=== PATIENT | male | born 1990 | race Caucasian/White ===

== ENCOUNTER 2020-06-08 07:58 | Emergency (ER) | payer OTHER, SELFPAY ==
[2020-06-08 07:59] VITALS: BP 147/93; PULSE 101; RESP 18; TEMP 37.3; O2SAT 94; BMI 29.1
--- NOTE | 2020-06-08 08:09 | RAD_ITS ---
STUDY: X-RAY CHEST REASON FOR EXAM: Male, 29 years old. COUGH, SHORTNESS OF BREATH, BODY ACHES AND CONGESTION X 1 WK TECHNIQUE: Single AP portable view of the chest. COMPARISON: None. FINDINGS: EKG electrodes are seen. Mild increased markings in the left lower lobe suggestive of early left lower lobe infiltrate. There is no demonstrated pleural abnormality. Normal size heart. Normal mediastinum and romelia. Normal visualized pulmonary arteries. Normal visualized aortic arch and descending thoracic aorta. Normal visualized thoracic spine. Normal visualized ribs, clavicles, and shoulders. There is no demonstrated abnormality of the visualized soft tissue structures of the upper abdomen. RAD/Chest 1 View (Portable) IMPRESSION: Findings suggestive of early left lower lobe infiltrate. Electronically Signed: Ramy Cool MD at 8:48 EST , Service support ,
--- NOTE | 2020-06-08 08:10 | ED.VIS.GEN ---
History of Present Illness Chief Complaint: Fever Informant: Patient Onset: Weeks Context: Gradual Onset Current Severity: Mild Maximum Severity: Mild Narrative: Patient presents with a 1 week history of fever, body aches, congestion. He does have cough with white sputum. T-max this morning was 101.5. Patient denies known contacts with Covid patient. States he has been quarantining at home for the past week. He has had poor appetite poor p.o. intake for the past 4 days. - Past Medical History (1) Anxiety Status: Chronic Past Medical History - Allergies and Home Meds Allergies/Adverse Reactions: Allergies No Known Allergies Allergy (Verified 06/08/20 07:59) Primary Care Physician: Jeff Leone DO [NON-STAFF] - Prior records reviewed: Yes Smoking Status: Never smoker Review of Systems General: Reports: Fever Eyes: Denies: Visual changes - bilaterally ENT: Denies: Bilateral ear pain, Sore throat Cardiovascular: Denies: Chest pain Respiratory: Reports: Dyspnea, Cough, Sputum Gastrointestinal: Denies: Abdominal pain, Vomiting, Diarrhea Musculoskeletal: Reports: Myalgias. Denies: Swelling, Extremity Pain Skin: Denies: Rash Neurological: Denies: Weakness, Parasthesia Hematologic: Denies: Easy bruising Allergy: Denies: Uticaria Physical Exam Vital Signs/Narrative: Vital Signs Temp Pulse Resp BP Pulse Ox 06/08/20 07:59 99.2 F H 101 H 18 147/93 H 94 Inital Vital Signs reviewed: Yes General: Well nourished, Well developed Head: Normocephalic Eyes: Perrl, EOMI Neck: Supple Cardiovascular: Regular rate, Regular rhythm Respiratory: No distress, CTA bilaterally Abdomen: Soft, Nontender, Normal bowel sounds Extremities: Nontender Skin: Normal color Neurological: Alert, Oriented x3 Psychological: Normal affect Diagnostic/Tx/Re-eval Chest X-Ray - ED: 1 View, Read by ED Physician, - - Questionable infiltrate left base Impressions Chest X-Ray 06/08/20 08:09 IMPRESSION: Findings suggestive of early left lower lobe infiltrate. Electronically Signed: Ramy Cool MD at 8:48 EST , Service support , 06/08/20 08:09 Chest 1 View (Portable) [RAD] Stat Laboratory Results 06/08/20 06/08/20 06/08/20 08:19 08:19 08:19 WBC 12.8 H RBC 4.68 Hgb 14.5 Hct 42.1 MCV 90.0 MCH 31.0 MCHC 34.4 RDW Std Deviation 37.4 RDW Coeff of Vero 11.4 L Plt Count 228 MPV 10.2 Immature Gran % (Auto) 0.500 Neut % (Auto) 84.4 H Lymph % (Auto) 9.3 L [place]ok % (Auto) 4.7 Eos % (Auto) 0.8 Baso % (Auto) 0.3 Absolute Neuts (auto) 10.8 H Absolute Lymphs (auto) 1.19 Nucleated RBC % 0 D-Dimer Quant (PE/DVT) 0.42 Sodium 136 Potassium 3.5 Chloride 103 Carbon Dioxide 28.0 Anion Gap 5 BUN 13 Creatinine 1.21 Estim Creat Clear Calc 97.98 Est GFR (MDRD) Af Amer 90 Est GFR (MDRD) Non-Af 74 BUN/Creatinine Ratio 10.7 Glucose 105 Lactic Acid Calcium 9.1 Total Bilirubin 1.10 H AST 18 ALT 34 Alkaline Phosphatase 81 Total Protein 7.2 Albumin 3.6 Globulin 3.6 Albumin/Globulin Ratio 1.0 COVID-19 (MARISA) 06/08/20 06/08/20 08:19 08:19 WBC RBC Hgb Hct MCV MCH MCHC RDW Std Deviation RDW Coeff of Vero Plt Count MPV Immature Gran % (Auto) Neut % (Auto) Lymph % (Auto) Crook % (Auto) Eos % (Auto) Baso % (Auto) Absolute Neuts (auto) Absolute Lymphs (auto) Nucleated RBC % D-Dimer Quant (PE/DVT) Sodium Potassium Chloride Carbon Dioxide Anion Gap BUN Creatinine Estim Creat Clear Calc Est GFR (MDRD) Af Amer Est GFR (MDRD) Non-Af BUN/Creatinine Ratio Glucose Lactic Acid 1.1 Calcium Total Bilirubin AST ALT Alkaline Phosphatase Total Protein Albumin Globulin Albumin/Globulin Ratio COVID-19 (MARISA) Not Detected - Medical Decision Making Patient was given Tylenol as well as Toradol while in the emergency department. Vital signs been stable. Chest x-ray per my interpretation was questionable infiltrate at left base and radiologist does concur that this does appear to be consistent with early infiltrate. White count is slightly elevated. His Covid PCR test is negative. In light of this patient be treated with a course of Levaquin, first dose given here. ED Disposition - Plan for ED Patient: Disposition: Home or Assisted Living Diagnosis: Pneumonia Instructions: ED Pneumonia (Adult) Prescriptions: Levofloxacin [Levaquin] 750 mg PO DAILY #4 tab Transmission Status: Pending to [place] [id number] [address] [facility] Referrals: Jeff Leone DO [NON-STAFF] - 1 Week if not improving
[2020-06-08 08:13] VITALS: BP 149/92; PULSE 101; RESP 19; TEMP 37.5; O2SAT 95
[2020-06-08 08:40] LABS: Absolute Lymphocyte Count 1.19 X10^3/uL (0.83-4.51); Absolute Neutrophil Count 10.8 X10^3/uL (2.0-7.7); Basophil# 0.04 X10^3/uL; Basophil% 0.3 % (0-1); Eosinophils% 0.8 % (0-5); Hematocrit 42.1 % (40-54); Hemoglobin 14.5 g/dL (13.0-16.5); Lymphocyte # 1.19 X10^3/ul (4.0); Lymphocyte % 9.3 % (19-41); Mean Corp Hgb Conc 34.4 g/dL (32-36); Mean Platelet Vol. 10.2 fl (6.2-12.0); Monocyte% 4.7 % (0-10); NRBC Flagged by Analyzer 0 % (0-5); Neutrophil # 10.84 X10^3/uL (2.7-7.7); Neutrophil % 84.4 % (47-70); Platelet Count 228 K/mm3 (150-450); RBC Distribution Width CV 11.4 % (11.6-14.6); RBC Distribution Width SD 37.4 fl (35.1-43.9); Red Blood Count 4.68 M/mm3 (4.6-6.2); White Blood Count 12.8 K/mm3 (4.4-11.0)
[2020-06-08 08:54] LABS: D-Dimer Quantitative (DVT/PE) 0.42 FEU/ug/m (0.27-0.49)
[2020-06-08 08:57] LABS: AST(SGOT) 18 U/L (15-37); Alanine Aminotransfer ALT/SGPT 34 U/L (16-61); Albumin, Serum 3.6 g/dL (3.2-5.0); Alkaline Phosphatase 81 U/L (45-117); Anion Gap 5 (5-15); BUN 13 mg/dL (7-18); BUN/Creat Ratio 10.7 RATIO (10-20); Calcium,Total 9.1 mg/dL (8.5-10.1); Chloride 103 mmol/L (98-107); Creatinine, Serum 1.21 mg/dL (0.70-1.30); EST Glomerular Filtration Rate 74 mL/min (>60); Est Glom Filt Rate - Afr Amer 90 mL/min (>60); Estimated Creatinine Clearance 97.98 ml/min; Globulin 3.6 g/dL (2.2-4.2); Glucose 105 mg/dL (74-106); Potassium 3.5 mmol/L (3.5-5.1); Protein, Total 7.2 g/dL (6.4-8.2); Sodium Level 136 mmol/L (136-145)
[2020-06-08 09:06] LABS: Lactic Acid 1.1 mmol/L (0.4-1.9)
[2020-06-08 10:09] VITALS: BP 113/78; PULSE 91; RESP 17; O2SAT 93
[2020-06-08] MEDS: Acetaminophen 500 MG Tablet 1000 MG PO (10:15)
[2020-06-08] MEDS: Ketorolac 30 MG/ML Syringe IV (10:52)
[2020-06-08] MEDS: levoFLOXacin 750 MG Tablet PO (11:08)
== END 2020-06-08 11:09 | disposition home or self-care (01) ==
PROVIDERS: Emergency Provider Emergency Medicine
DX: J18.9 Pneumonia, unspecified organism (principal); F41.9 Anxiety disorder, unspecified; Z79.899 Other long term (current) drug therapy
CPT/HCPCS: 71045; 80053; 83605; 85025; 85379; 87040; 87635; 96374; 99283; A4216; U0002

== ENCOUNTER → 2020-08-03 09:44 | Outpatient (CLI) | payer OTHER, SELFPAY ==
[2020-08-03 12:12] LABS: Absolute Lymphocyte Count 1.94 X10^3/uL (0.83-4.51); Absolute Neutrophil Count 5.5 X10^3/uL (2.0-7.7); Basophil# 0.07 X10^3/uL; Basophil% 0.8 % (0-1); Eosinophil# 0.72 X10^3/uL; Hematocrit 47.1 % (40-54); Hemoglobin 15.9 g/dL (13.0-16.5); Lymphocyte # 1.94 X10^3/ul (4.0); Lymphocyte % 21.7 % (19-41); Mean Corp Hgb Conc 33.8 g/dL (32-36); Mean Corpuscular Hgb 30.2 pg (27.0-32.0); Mean Corpuscular Volume 89.4 fL (80-94); Mean Platelet Vol. 11.3 fl (6.2-12.0); Monocyte% 7.8 % (0-10); NRBC Flagged by Analyzer 0 % (0-5); Neutrophil # 5.51 X10^3/uL (2.7-7.7); Neutrophil % 61.5 % (47-70); Platelet Count 212 K/mm3 (150-450); RBC Distribution Width CV 12.5 % (11.6-14.6); RBC Distribution Width SD 41.1 fl (35.1-43.9); Red Blood Count 5.27 M/mm3 (4.6-6.2)
[2020-08-03 12:29] LABS: AST(SGOT) 25 U/L (15-37); Alanine Aminotransfer ALT/SGPT 58 U/L (16-61); Albumin, Serum 3.9 g/dL (3.2-5.0); Alkaline Phosphatase 74 U/L (45-117); Bilirubin, Direct 0.13 mg/dL (0.00-0.30); Cholesterol 220 mg/dL (200); Globulin 3.2 g/dL (2.2-4.2); High Density Lipoprotein 34 mg/dL; Protein, Total 7.1 g/dL (6.4-8.2); Triglycerides 175 mg/dL; Very Low Density Lipoprotein 35 mg/dL (5-40)
== END ==
PROVIDERS: Referring Provider Physician Assistant; Visit Provider Physician Assistant
DX: L70.0 Acne vulgaris (principal); Z79.899 Other long term (current) drug therapy; L72.8 Other follicular cysts of the skin and subcutaneous tissue
CPT/HCPCS: 36415; 80061; 80076; 85025

== ENCOUNTER 2020-09-20 22:18 | Emergency (ER) | payer OTHER, SELFPAY ==
[2020-09-20 22:19] VITALS: BP 130/93; PULSE 90; RESP 18; TEMP 36.7; O2SAT 97; BMI 26.3
--- NOTE | 2020-09-20 22:45 | EKG12_ITS ---
Test Reason : DYSRHYTHMIA Blood Pressure : / mmHG Vent. Rate : 070 BPM Atrial Rate : 070 BPM P-R Int : 154 ms QRS Dur : 086 ms QT Int : 368 ms P-R-T Axes : 022 040 042 degrees QTc Int : 397 ms Normal sinus rhythm Normal ECG Confirmed by CY SIGALA, CLEO ([id number]), editor news EITAN BRITT ([id number]) on 09/21/2020 10:10:31 AM Referred By: Confirmed By:CLEO BENOIT MD
[2020-09-20] MEDS: predniSONE 20 MG Tablet 60 MG PO (22:50)
--- NOTE | 2020-09-20 22:56 | RAD_ITS ---
INDICATION: Nonproductive cough, fever and bilateral wheezing EXAMINATION/TECHNIQUE: X-RAY - XR Chest 1 View COMPARISON: None. FINDINGS: The lungs are clear. The cardiomediastinal silhouette is unremarkable. No pleural effusion or pneumothorax. No acute osseous abnormalities. RAD/Chest 1 View (Portable) IMPRESSION: No acute radiographic abnormalities. Electronically Signed: Rodrigo Moran MD at 23:40 EDT Tel , Service support ,
[2020-09-20 22:59] VITALS: PULSE 73; RESP 18; O2SAT 97
[2020-09-20] MEDS: Albuterol 2.5 MG/3 ML VIAL.NEB. INHALATION ×3 (22:59)
[2020-09-20 23:32] LABS: Absolute Lymphocyte Count 2.74 X10^3/uL (0.83-4.51); Basophil# 0.13 X10^3/uL; Basophil% 1.4 % (0-1); Eosinophil# 1.53 X10^3/uL; Eosinophils% 16.7 % (0-5); Hematocrit 46.2 % (40-54); Hemoglobin 16.1 g/dL (13.0-16.5); Lymphocyte # 2.74 X10^3/ul (0.83-4.51); Lymphocyte % 29.9 % (19-41); Mean Corp Hgb Conc 34.8 g/dL (32-36); Mean Corpuscular Hgb 30.2 pg (27.0-32.0); Mean Corpuscular Volume 86.7 fL (80-94); Mean Platelet Vol. 11.3 fl (6.2-12.0); Monocyte# 0.64 X10^3/uL; NRBC Flagged by Analyzer 0 % (0-5); Neutrophil # 4.03 X10^3/uL (2.7-7.7); Neutrophil % 44.1 % (47-70); Platelet Count 200 K/mm3 (150-450); RBC Distribution Width CV 12.5 % (11.6-14.6); RBC Distribution Width SD 39.4 fl (35.1-43.9); Red Blood Count 5.33 M/mm3 (4.6-6.2); White Blood Count 9.2 K/mm3 (4.4-11.0)
--- NOTE | 2020-09-20 23:38 | CPS ---
x3 Albuterol given in ER
--- NOTE | 2020-09-20 23:52 | EX.ED.VIS.UR ---
HPI HPI - URI History of Present Illness Chief Complaint: Cough Informant: patient Onset/Context/Timing Onset: Days (Onset 3 days ago) Context: Sudden Onset Timing: Continuous Quality: Nasal congestion, mild sore throat nonproductive cough with fever Location: Upper respiratory Current Severity: Mild Maximum Severity: Moderate Worsened by: Not Worsened By Swallowing, Eating Solids and Drinking Liquids Associated Symptoms Associated Symptoms: Nasal Congestion, Headache, Myalgias, Nausea, Vomiting, Diarrhea, Shortness of Breath, Chest Pain and Nonproductive cough Narrative Narrative: Patient is a 30-year-old male who presents with upper story symptoms. He denies exposure to anyone with Covid. He denies loss of taste or smell. He denies history of smoking. He states 4 months ago he was diagnosed with pneumonia. He denies myalgias or arthralgias. He denies leg pain, swelling discoloration. He denies pleuritic pain. He denies history of asthma. Upon further questioning he does admit to vaping. Prior similar symptoms: Yes Recent Illness/Hospitalization: No ROS ROS ED Constitutional Constitutional ED: Reports chills, fever(s), subjective and sweats Eyes Eyes: Denies blurry vision, change in vision or diplopia ENT ENT ED: Reports rhinorrhea and sore throat; Denies ear pain Cardiovascular Cardiovascular: Denies chest pain, orthopnea, palpitations, paroxysmal nocturnal dyspnea or racing heartbeat Respiratory/Chest Respiratory/Chest: Reports cough, dyspnea and dyspnea on exertion; Denies orthopnea, paroxysmal nocturnal dyspnea or sputum Gastrointestinal Gastrointestinal: Reports nausea; Denies abdominal pain, diarrhea or vomiting Genitourinary Genitourinary ED: Denies dysuria, hematuria or urinary frequency Musculoskeletal Musculoskeletal: Denies arthralgias, back pain, myalgias or neck pain Integumentary Denies rash Neurologic Neurologic: Denies headache(s) or weakness Endocrine Endocrinology: Denies polydipsia or polyuria Hematologic/Lymphatic Hematologic/Lymphatic: Denies easy bleeding or easy bruising [facility] Medical History (Updated 09/21/20 @ 00:[address] Victor Manuel Abdullahi MD) Community acquired pneumonia Home Medications alprazolam 2 mg PO DAILY 06/08/20 [History Last Taken Unknown] albuterol sulfate [Ventolin HFA] 2 puff INHALATION Q4H PRN PRN #1 inhaler 09/21/20 [Rx Last Taken Unknown] prednisone 60 mg PO DAILY #15 tablet 09/21/20 [Rx Last Taken Unknown] Allergy/AdvReac Type Severity Reaction Status Date / Time No Known Allergies Allergy Verified 09/20/20 22:21 no surgical history Social History (Updated 09/20/20 @ 23:[address] Victor Manuel Abdullahi MD) Smoking Status: Never smoker Smokeless tobacco user: other alcohol intake: current alcohol intake frequency: holidays/special occasions only substance use type: does not use EXAM Physical Exam Const Vital Signs: 09/20/20 22:19 09/20/20 22:26 09/20/20 22:59 Temperature 98.0 F Temperature Source Temporal Pulse Rate 90 73 Respiratory Rate 18 18 Respiratory Effort Normal Non-Labored Normal Non-Labored Respiratory Depth Normal Normal Respiratory Pattern Normal Normal Blood Pressure 130/93 H Blood Pressure Mean 105 Pulse Ox 97 97 Oxygen Delivery Method Room Air Room Air Room Air Positive well nourished and well developed General Appearance ED: well developed; Negative for cyanotic, diaphoretic or pallor HEENT Reports TM's clear and moist mucous membranes normocephalic Face and Sinus: Negative for sinus tenderness External Ear: external ears normal and no preauricular adenopathy External Auditory Canal: EAC's normal Tympanic Membrane ED: Yes TM's clear Throat: posterior oropharynx normal Eyes PERRL and EOMs intact bilaterally General Eye ED: Negative for pale conjunctiva or scleral icterus Neck no lymphadenopathy, supple and no JVD General: Negative for anterior neck swelling Resp normal respiratory effort Auscultation: wheezes throughout (He does have increased expiratory phase.) Cardio S1 normal heart sound, S2 normal heart sound and no murmurs Rate: regular rate Rhythm: regular rhythm GI non-tender and non-distended Auscultation: normoactive bowel sounds Palpation: soft Back/Spine no CVA tenderness and normal ROM Extremity normal to inspection and full ROM General Extremety ED: Negative for cyanosis General Extremity: Negative for cyanosis Neuro oriented x3, CN's II-XII intact bilaterally and no sensory deficits noted Sensorium / Orientation: alert Motor Exam: strength 5/5 throughout Psych mental status grossly normal Skin General Skin Exam: Negative for jaundice or pallor Lesions: no lesions Rashes: no rashes MDM MDM MDM Narrative Medical decision making narrative: Patient presents with upper respiratory symptoms. Since he has history of pneumonia and complains of fever with no known exposure to Covid will obtain chest x-ray to rule out pneumonia. CBC to assess white count. Covid test was ordered. He was treated with albuterol. He also received 60 mg of prednisone p.o. Patient improved with albuterol treatments. He was discharged prescription for albuterol metered-dose inhaler and burst of prednisone. He was informed that his chest x-ray was unremarkable and that his Covid test was negative. Lab Data Attestation: I reviewed the patient's lab results. Lab results narrative: CBC is unremarkable. There is no shift or bandemia noted. Covid test was negative. Labs: Laboratory Results - last 24 hr 09/20/20 22:50 WBC 9.2 RBC 5.33 Hgb 16.1 Hct 46.2 MCV 86.7 MCH 30.2 MCHC 34.8 RDW Std Deviation 39.4 RDW Coeff of Vero 12.5 Plt Count 200 MPV 11.3 Immature Gran % (Auto) 0.900 Neut % (Auto) 44.1 L Lymph % (Auto) 29.9 Piatt % (Auto) 7.0 Eos % (Auto) 16.7 H Baso % (Auto) 1.4 H Absolute Neuts (auto) 4.0 Absolute Lymphs (auto) 2.74 Nucleated RBC % 0 Radiography Diagnostic Testing: Radiology Impression Chest X-Ray 09/20/20 22:56 IMPRESSION: No acute radiographic abnormalities. Electronically Signed: Rodrigo Moran MD at 23:40 EDT Tel , Service support , Single view portable chest x-ray reveals normal cardiac silhouette and size. There is no normality the mediastinum. There is no evaluated the lung parenchyma. There is no abnormally noted the osseous structures. The chest x-ray is normal. Reviewed by me at 2335. Discharge Plan Triage Chief Complaint: Cough ED Provider: Victor Manuel Abdullahi Dx/Rx/DC Orders Clinical Impression: Acute bronchitis with bronchospasm Instructions: ED Bronchitis with Wheezing (Adult) Prescriptions: New prednisone 20 MG tablet 60 mg PO DAILY Qty: 15 RF: 0 albuterol sulfate [Ventolin HFA] 1 INHALER inhaler 2 puff inhalation Q4H PRN PRN (Reason: Wheezing) Qty: 1 RF: 0 No Action alprazolam 2 MG tablet extended release 24 hr 2 mg PO DAILY RF: 0 Primary Care Provider: Care Physician,No Primary Referrals: Adam Mason MD [NON-STAFF] - 3-5 Days if not improving Care Physician,No Primary [Primary Care Provider] - Disposition Disposition: Home, self care
[2020-09-21 00:18] VITALS: BP 122/75; PULSE 75; RESP 18; O2SAT 95
== END 2020-09-21 00:18 | disposition home or self-care (01) ==
PROVIDERS: Emergency Provider Emergency Medicine
DX: J20.9 Acute bronchitis, unspecified (principal); Z87.01 Personal history of pneumonia (recurrent)
CPT/HCPCS: 71045; 85025; 87426; 93005; 94640; 99251; 99285; A4216; G0463

== ENCOUNTER → 2020-11-22 14:07 | Outpatient (CLI) | payer OTHER, SELFPAY ==
--- NOTE | 2020-11-22 14:10 | RAD_ITS ---
STUDY: X-RAY - LUMBAR SPINE REASON FOR EXAM: Male, 30 years old. Chronic back pain. TECHNIQUE: 5 view(s) of the lumbar spine were obtained. COMPARISON: None FINDINGS: Normal lumbar lordosis. There is no substantial scoliosis. There is a normal alignment of the vertebrae. Normal vertebral bodies and endplates. Normal disc space heights. The soft tissue structures are unremarkable. RAD/L/S Spine Min 4 Views IMPRESSION: Normal x-ray examination of the lumbar spine. Electronically Signed: Ramón Gallagher MD at 10:47 EDT , Service support ,
[2020-11-22 18:27] LABS: T4 Free Direct 0.76 ng/dL (0.76-1.46)
[2020-11-24 16:45] LABS: Thyroglobulin Antibody < 1.0 IU/mL (0.0-0.9); Thyroid Peroxidase AB < 8 IU/mL (0-34)
== END ==
PROVIDERS: PCP Family Medicine; Referring Provider Family Medicine; Visit Provider Family Medicine
DX: M54.9 Dorsalgia, unspecified (principal); G89.29 Other chronic pain; E04.1 Nontoxic single thyroid nodule
CPT/HCPCS: 36415; 72110; 84439; 84443; 86376; 86800

== ENCOUNTER → 2020-11-24 14:47 | Outpatient (CLI) | payer OTHER, SELFPAY ==
--- NOTE | 2020-11-24 14:49 | US_ITS ---
STUDY: THYROID ULTRASOUND REASON FOR EXAM: Male, 30 years old. NODULE TECHNIQUE: Ultrasound evaluation of the thyroid was performed with real-time and static chatman-scale imaging. COMPARISON: None. FINDINGS: RIGHT LOBE: The right lobe of the thyroid gland is enlarged and measures 5.7 cm x 1.7 cm x 1.9 cm. There is a homogeneous echotexture. There are no demonstrated solid, cystic or complex lesions. LEFT LOBE: The left lobe of the thyroid gland measures 4.5 cm x 1.3 cm x 1.8 cm. There is a homogeneous echotexture. There are no demonstrated solid, cystic or complex lesions. ISTHMUS: The isthmus measures 4 mm. The regional lymph nodes are normal. US/Thyroid IMPRESSION: There is enlargement of the right lobe of the thyroid. Electronically Signed: Ramy Cool MD at 15:48 EDT , Service support ,
== END ==
PROVIDERS: PCP Family Medicine; Referring Provider Family Medicine; Visit Provider Family Medicine
DX: E04.1 Nontoxic single thyroid nodule (principal)
CPT/HCPCS: 76536

== ENCOUNTER 2021-09-05 09:18 | Emergency (ER) | payer OTHER, SELFPAY ==
[2021-09-05 09:19] VITALS: BP 126/86; PULSE 108; RESP 18; TEMP 36.4; O2SAT 100; BMI 24.0
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
[2021-09-05] MEDS: Morphine 4 MG/ML Syringe IV (10:05)
[2021-09-05] MEDS: Ondansetron ODT 4 MG Tablet PO (10:05)
[2021-09-05 10:17] LABS: Absolute Lymphocyte Count 1.62 X10^3/uL (0.83-4.51); Absolute Neutrophil Count 6.6 X10^3/uL (2.0-7.7); Basophil# 0.05 X10^3/uL; Basophil% 0.5 % (0-1); Eosinophil# 0.19 X10^3/uL; Hematocrit 43.1 % (40-54); Hemoglobin 14.5 g/dL (13.0-16.5); Lymphocyte # 1.62 X10^3/ul (0.83-4.51); Lymphocyte % 17.4 % (19-41); Mean Corp Hgb Conc 33.6 g/dL (32-36); Mean Corpuscular Hgb 29.8 pg (27.0-32.0); Mean Corpuscular Volume 88.7 fL (80-94); Mean Platelet Vol. 10.3 fl (6.2-12.0); Monocyte# 0.87 X10^3/uL; Monocyte% 9.3 % (0-10); NRBC Flagged by Analyzer 0 % (0-5); Neutrophil # 6.57 X10^3/uL (2.7-7.7); Neutrophil % 70.5 % (47-70); Platelet Count 231 K/mm3 (150-450); RBC Distribution Width CV 12.3 % (11.6-14.6); RBC Distribution Width SD 40.1 fl (35.1-43.9); Red Blood Count 4.86 M/mm3 (4.6-6.2); White Blood Count 9.3 K/mm3 (4.4-11.0)
[2021-09-05 10:29] LABS: Anion Gap 4 (5-15); BUN 10 mg/dL (7-18); BUN/Creat Ratio 10.4 RATIO (10-20); Calcium,Total 8.8 mg/dL (8.5-10.1); Chloride 105 mmol/L (98-107); Creatinine, Serum 0.96 mg/dL (0.70-1.30); EST Glomerular Filtration Rate 96 mL/min (>60); Est Glom Filt Rate - Afr Amer 117 mL/min (>60); Estimated Creatinine Clearance 128.44 ml/min; Glucose 79 mg/dL (74-106); Potassium 3.6 mmol/L (3.5-5.1); Sodium Level 140 mmol/L (136-145)
--- NOTE | 2021-09-05 10:30 | RAD_ITS ---
STUDY: X-RAY - LEFT KNEE REASON FOR EXAM: Male, 31 years old. Injury/Pain TECHNIQUE: 4 view(s) of the knee. COMPARISON: None. FINDINGS: Normal visualized distal femur. Nondisplaced fracture involving the lateral tibial plateau. Normal proximal tibiofibular articulation. Normal medial femorotibial compartment. Normal lateral femorotibial compartment. Normal patellofemoral articulation. Moderate size joint effusion. RAD/Knee 4 or More Views IMPRESSION: Nondisplaced/nondepressed fracture involving the lateral tibial plateau. Moderate size joint effusion. Electronically Signed: Ramy Cool MD at 10:53 EDT ,
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
[2021-09-05] MEDS: oxyCODONE 5 MG Tablet PO (11:33)
[2021-09-05] MEDS: HYDROmorphone 0.5 MG/0.5 ML SYRINGE IV (12:18)
[2021-09-05 12:40] VITALS: BP 120/107; PULSE 93; RESP 18; O2SAT 99
== END 2021-09-05 12:41 | disposition home or self-care (01) ==
PROVIDERS: Emergency Provider Emergency Medicine; PCP Family Medicine; Visit Provider Emergency Medicine
DX: S82.125A Nondisplaced fracture of lateral condyle of left tibia, initial encounter for closed fracture (principal); S80.212A Abrasion, left knee, initial encounter; X50.0XXA Overexertion from strenuous movement or load, initial encounter; Y93.55 Activity, bike riding
CPT/HCPCS: 73564; 73706; 80048; 85025; 96374; 96375; 99284; Q9967; A4216

== ENCOUNTER 2021-09-08 17:06 | Emergency (ER) | payer OTHER, SELFPAY ==
[2021-09-08 17:10] VITALS: BP 146/109; PULSE 89; RESP 16; TEMP 36.6; O2SAT 99; BMI 25.0
--- NOTE | 2021-09-08 17:18 | ED.RN ---
PT CAN BARELY KEEP EYES OPEN.
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
[2021-09-08] MEDS: oxyCODONE 5 MG Tablet PO (17:50)
--- NOTE | 2021-09-08 17:53 | ED.RN ---
PT EMERY AND DEMANDING PAIN MEDS. REPEATEDLY STATES THAT HE DOES NOT HAVE AN OPIOID PROBLEM AND SHOULD NOT BE PUNISHED FOR THE DRUGGIES.
--- NOTE | 2021-09-08 18:45 | ED.RN ---
PT. LEFT WITHOUT DISCHARGE INSTRUCTIONS. WALKED OUT STATING, I DON'T KNOW WHAT PERSON WITH A BROKEN LEG TAKES TYLENOL AND IBUPROFEN! i GUESS I'LL BE BACK.
== END 2021-09-08 18:46 | disposition home or self-care (01) ==
LOC: ED 17:38
PROVIDERS: Emergency Provider Physician Assistant; Visit Provider Physician Assistant
DX: S82.145A Nondisplaced bicondylar fracture of left tibia, initial encounter for closed fracture (principal); V86.56XA Driver of dirt bike or motor/cross bike injured in nontraffic accident, initial encounter
CPT/HCPCS: 99283